=== PATIENT | male | born 1980 | race Caucasian/White ===

== ENCOUNTER 2019-05-20 18:23 | Emergency (ER) | payer SELFPAY | END 2019-05-20 19:00 | LOC: BURERS 18:23 | DX: S62.305A Unspecified fracture of fourth metacarpal bone, left hand, initial encounter for closed fracture (principal); S62.307A Unspecified fracture of fifth metacarpal bone, left hand, initial encounter for closed fracture; F17.210 Nicotine dependence, cigarettes, uncomplicated; W19.XXXA Unspecified fall, initial encounter; Y92.009 Unspecified place in unspecified non-institutional (private) residence as the place of occurrence of the external cause | CPT/HCPCS: 29125 ==

== ENCOUNTER 2024-01-03 17:17 | Emergency (ER) | payer SELFPAY ==
[2024-01-03 17:48] LABS: Bilirubin Negative (Negative); Blood, Urine Large (Negative); Clarity Slightly Cloudy (Clear); Glucose, Urine (Dipstick) Negative (Negative); Ketone, Urine Negative (Negative); Leukocyte Negative (Negative); Nitrite Negative (Negative); Protein, Urine (Dipstick) Negative (Neg-Trace); Urobilinogen 0.2 mg/dL (Less than 2); pH, Urine 6.5 (5.0-9.0)
[2024-01-03 17:57] LABS: Specific Gravity, Urine 1.026 (1.002-1.036)
[2024-01-03 18:12] LABS: Bacteria/HPF Rare-Few HPF (None Seen); CAUTI Indications for Culture Dysuria,urgency,freq; Mucous/LPF Few LPF (<2+); RBC/HPF 21-50 HPF (0-3); Squamous Epithelial None Seen HPF (0-3); WBC/HPF 0-3 HPF (0-3)
[2024-01-03 18:13] LABS: Urine Culture Reflex No No
[2024-01-03] MEDS ORDERED: Ondansetron PF 4 MG/2 ML Vial ONE (18:18)
[2024-01-03] MEDS ORDERED: Ketorolac Tromethamine 30 MG (1 mL) VIAL ONE (18:18)
[2024-01-03] MEDS ORDERED: Tamsulosin HCl 0.4 MG CAP ONE (19:30)
[2024-01-03] MEDS ORDERED: Morphine 2 MG/ML VIAL ONE (19:31)
== END 2024-01-03 21:56 | disposition home or self-care (01) ==
LOC: BURERS 17:17
DX: N13.2 Hydronephrosis with renal and ureteral calculous obstruction (principal); F17.210 Nicotine dependence, cigarettes, uncomplicated
CPT/HCPCS: 74176; 81001; 96374; 96375; J1885; J2272; J2405